=== PATIENT | female | born 1975 | race Caucasian/White ===

== ENCOUNTER 2016-08-22 17:39 | Emergency (ER) | payer MEDICAID ==
[2016-08-22 17:54] LABS: BASOPHIL# 0.1 X 10^3uL (0.0-0.1); BASOPHILS 0.5 % (0.0-2.0); EOSINOPHILS 1.2 % (0.0-6.0); EOSINOPHILS# 0.1 X 10^3uL (0.0-0.4); HEMATOCRIT 41.4 % (36.0-48.0); HEMOGLOBIN 14.5 g/dL (12.0-16.0); LYMPHOCYTES 33.4 % (20.0-40.0); LYMPHOCYTES# 3.7 X 10^3uL (0.8-3.8); MEAN CELL VOLUME 87.4 fL (80.0-100.0); MEAN CORPUS. HGB CONCENTRATION 35.1 g/dL (32.0-36.0); MEAN CORPUSCULAR HEMOGLOBIN 30.7 pg (29.0-35.0); MEAN PLATELET VOLUME 7.8 fL (7.4-10.4); MONOCYTES# 0.7 X 10^3uL (0.2-1.0); NEUTROPHILS 58.9 % (54.0-75.0); NEUTROPHILS# 6.5 X 10^3uL (2.6-6.7); PLATELET COUNT 234 X 10^3uL (130-440); RED BLOOD COUNT 4.74 X 10^6uL (4.20-6.10); RED CELL DISTRIBUTION WIDTH 12.1 % (11.5-14.5); WHITE BLOOD COUNT 11.1 X 10^3uL (3.9-10.7)
[2016-08-22] MEDS ORDERED: NITROGLYCERIN 0.4 MG TAB.SUBL SUBLINGUAL ONE (18:05)
[2016-08-22 18:08] LABS: BLOOD UREA NITROGEN 13 mg/dL (7-17); CHLORIDE 105 mmol/L (98-107); EST GLOMERULAR FILTRATION RATE > 60 mL/min; GLUCOSE 162 mg/dL (70-100); MAGNESIUM 1.9 mg/dL (1.6-2.3); POTASSIUM 2.8 mmol/L (3.5-5.1); SODIUM 141 mmol/L (137-145)
[2016-08-22] MEDS ORDERED: ONDANSETRON HCL 4 MG/2 ML VIAL ONE (18:22)
[2016-08-22] MEDS ORDERED: NORMAL SALINE 1,000 ML IV ONE (18:22)
[2016-08-22 18:27] LABS: ALBUMIN 4.5 g/dL (3.5-5.0); ALKALINE PHOSPHATASE 85 U/L (38-126); ALT 30 U/L (9-52); AST 17 U/L (14-36); BILIRUBIN, DIRECT 0.1 mg/dL (0.0-0.4); BILIRUBIN, TOTAL 0.5 mg/dL (0.2-1.3); LIPASE 61 U/L (23-300); TOTAL PROTEIN 8.1 g/dL (6.3-8.2)
[2016-08-22] MEDS ORDERED: POTASSIUM CHLORIDE/NS 20 MEQ/1,000 ML BAG IV ONE (18:33)
[2016-08-22 18:41] LABS: TROPONIN I < 0.012 ng/mL (0.00-0.034)
[2016-08-22] MEDS ORDERED: NITROGLYCERIN OINT 1 GM PACKET ONE (18:42)
[2016-08-22] MEDS ORDERED: LORazepam 0.5 MG TABLET ONE (19:03)
--- NOTE | 2016-08-22 19:04 | RADIOLOGY REPORT ---
HISTORY: Chest pain COMPARISON: None. FINDINGS: 1 view of the chest obtained. Lungs are adequately aerated with no confluent infiltrate or consolida tion. There is no pleural effusion. There is no pneumothorax. Cardiomediastinal silhouette is with in normal limits. Pulmonary vascularity is unremarkable. Trachea is midline. No interstitial or air ways thickening. Visualized bony structures appear intact. IMPRESSION: Negative portable chest. Final Electronic Signature: This report was electronically signed by Wisam Coley MD on 08/22/2016 7: 02 PM. [facility] [place] /
[2016-08-22] MEDS ORDERED: ENOXAPARIN SODIUM 80 MG/0.8 ML SYR SUBCUT ONE (19:10)
--- NOTE | 2016-08-22 20:39 | ER PHYSICIAN DOCUMENTATION ---
Physician Documentation [facility] Name:Jennifer Argueta Age:40 yrs Sex:Female :1975 Arrival Date:08/22/2016 Time:17:39 BedTrauma-C Private MD: Lane Bruno Disposition: 08/22 19:56 Critical Care: not applicable. cd Disposition: 08/22/16 19:58 Transfer ordered to [facility]. Diagnosis are Unstable Angina, Precordial Chest Pain. - Reason for transfer: Specialty. - Accepting physician is Елена Mcqueen MD, Cardiology. - Condition is Fair. - Problem is new. - Symptoms are resolved. COBRA Form completed? Yes Transfer - Mode of Transportation Ambulance HPI: 17:45 This 40 yrs old Female presents to ER via Private Vehicle with complaints of cd Chest Pain > 30 y/o. 17:45 The patient or guardian reports chest pain that is located primarily in the substernal cd area, anterior aspect of left upper chest, mid-sternal area and left breast. Onset: acutely, 1.25 hour(s) ago. The pain does not radiate. There has been no movement of pain. Associated signs and symptoms: Pertinent positives: abdominal pain, Pertinent negatives: cough, diaphoresis, lower extremity pain, lower extremity swelling, nausea, palpitations, recent travel, shortness of breath, vomiting. The chest pain is described as dull, a heaviness. Duration: The patient or guardian reports a single episode, that is still ongoing, and unchanged. Severity of pain: At its worst the pain was moderate a 6 / 10 in the emergency department the pain is unchanged. Risk factors for coronary artery disease include: This patient has a family history of coronary artery disease. This patient has a history of high cholesterol. This patient has a history of hypertension. This patient is a smoker. The risk factors for pulmonary embolism include: This patient is morbid obese. This patient is a smoker. The patient has not experienced similar symptoms in the past. Historical: - Allergies: No known drug Allergies; - Home Meds: 1. metoprolol tartrate 25 mg oral tab 1 tab 2 times per day - PSHx: ; - Tetanus: < 10 years. - Ebola Screening: : Patient negative for fever greater than or equal to 101.5 degrees Fahrenheit, and additional compatible Ebola Virus Disease symptoms. Patient denies exposure to infectious person. Patient denies travel to an Ebola-affected area in the 21 days before illness onset. . - Immunization history: Pneumococcal vaccine status is unknown, Flu Vaccine < 1 year. - Social history: Smoking status: Patient states former smoker of tobacco. ROS: 19:31 ENT: Negative for injury, pain, epistaxis and discharge. cd 19:31 Neck: Negative for injury, pain, stiffness and swelling. cd Back: Negative for injury, pain or muscle spasms. : Negative for injury, bleeding, discharge, dysuria, frequency, urgency and swelling. MS/Extremity: Negative for injury, deformity, edema, calf tenderness, pain or coldness. Skin: Negative for injury, rash, itching and discoloration. 19:31 Neuro: Negative for headache, weakness, numbness, tingling, and seizure. 19:31 Constitutional: Negative for chills, fever. 19:31 Cardiovascular: Positive for chest pain, Negative for edema, orthopnea, palpitations. 19:31 Respiratory: Negative for cough, dyspnea on exertion, hemoptysis, pleurisy, shortness of breath, sputum production, wheezing. 19:31 Abdomen/GI: Positive for abdominal pain, Negative for nausea, vomiting, diarrhea, abdominal distension, anorexia, hematemesis, black/tarry stool, rectal bleeding. 19:31 Psych: Positive for anxiety. 19:31 All other systems are negative. Exam: Head/Face: Normocephalic, atraumatic. Eyes: Pupils equal round and reactive to light, extra-ocular motions intact. Lids and lashes normal. Conjunctiva and sclera are non-icteric and not injected. Cornea within normal limits. Periorbital areas with no swelling, redness, or edema. ENT: Nares patent. No nasal discharge, no septal abnormalities noted. Tympanic membranes are normal and external auditory canals are clear. Oropharynx with no redness, swelling, or masses, exudates, or evidence of obstruction, uvula midline. Mucous membranes moist. Neck: Trachea midline, no thyromegaly or masses palpated, and no cervical lymphadenopathy. Supple, full range of motion without nuchal rigidity, or vertebral point tenderness. No Meningismus. 19:32 Chest/axilla: Normal chest wall appearance and motion. Nontender with no deformity. cd No lesions are appreciated. Back: No spinal tenderness. No costovertebral tenderness. Full range of motion. Skin: Warm, dry with normal turgor. Normal color with no rashes, no lesions, and no evidence of cellulitis. MS/ Extremity: Pulses equal, no cyanosis. Neurovascular intact. Full, normal range of motion. 19:32 Neuro: Awake and alert, GCS 15, oriented to person, place, time, and situation. Cranial nerves II-XII grossly intact. Motor strength 5/5 in all extremities. Sensory grossly intact. Cerebellar exam normal. Normal gait. 19:32 Constitutional: The patient appears alert, awake, non-diaphoretic, non-toxic, well developed, well nourished, anxious, in obvious distress, moderately distressed. 19:32 Cardiovascular: Rate: tachycardic, actual rate is 115 bpm, Rhythm: regular, Pulses: no pulse deficits are appreciated, Heart sounds: normal, Edema: is not appreciated. 19:32 Respiratory: the patient does not display signs of respiratory distress, Respirations: normal, Breath sounds: are normal, clear throughout. 19:32 Abdomen/GI: Inspection: abdomen appears normal, Bowel sounds: active, Palpation: mild abdominal tenderness, in the right upper quadrant, Sonosite US....GB not visualized, Indicators: McBurney's point is not tender, Smith's sign is positive. 19:32 Psych: Behavior/mood is pleasant, cooperative, anxious. Vital Signs: 17:40 BP 157 / 82 (auto/); lp 17:41 Pulse 120 MON; Resp 18; Pulse Ox 97% ; lp 17:45 BP 157 / 82; Pulse 118; Resp 18; Temp 97.5(O); Pulse Ox 98% on 2 lpm NC; Weight 83.91 lp kg; Height 5 ft. 7 in. (170.18 cm); Pain 8/10; 18:06 BP 130 / 63 (auto/); lp 18:06 Pulse 109 MON; Resp 19; Pulse Ox 98% ; lp 18:10 BP 103 / 60 (auto/); lp 18:11 Pulse 112 MON; Resp 17; Pulse Ox 99% ; lp 18:20 BP 119 / 64 (auto/); lp 18:21 Pulse 108 MON; Resp 19; Pulse Ox 99% ; lp 18:26 BP 129 / 74 (auto/); lp 18:26 Pulse 105 MON; Pulse Ox 100% ; lp 18:30 BP 109 / 72 (auto/); lp 18:31 Pulse 103 MON; Resp 16; Pulse Ox 99% ; lp 18:40 BP 121 / 67 (auto/); lp 18:41 Pulse 104 MON; Resp 15; Pulse Ox 99% ; lp 18:50 BP 118 / 71 (auto/); lp 18:51 Pulse 97 MON; Resp 17; Pulse Ox 99% ; lp 19:51 BP 83 / 68 (auto/); bw2 19:51 Pulse 83 MON; Resp 14; Pulse Ox 98% ; bw2 20:00 BP 89 / 60 (auto/); bw2 20:01 Pulse 95 MON; Resp 21; bw2 20:10 BP 112 / 59 (auto/); bw2 20:11 Pulse 83 MON; Resp 18; bw2 20:20 BP 120 / 64 (auto/); bw2 20:21 Pulse 88 MON; Resp 18; bw2 20:39 BP 104 / 59; Pulse 77; Resp 16; Pulse Ox 94% on R/A; lp 17:45 Body Mass Index 28.97 (83.91 kg, 170.18 cm) lp Artem Coma Score: 19:32 Eye Response: spontaneous(4). Verbal Response: oriented(5). Motor Response: obeys cd commands(6). Total: 15. MDM: 17:45 ECG:. 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 17:54 Patient took aspirin in the Emergency Department. Patient did not receive fibrinolytic cd due to not indicated. BUD Risk Score: 1 - Three or more CAD risk factors, [Family Hx], [HTN], [Elevated Cholesterol], [Active Smoker], 1 - ST deviation >0.5mm. 17:55 Differential diagnosis: abnormal EKG, acute myocardial infarction, acute pericarditis, cd anxiety, chest wall pain, cholecystitis, Cholelithiasis esophagitis, pulmonary embolus, unstable angina. 18:04 Patient medically screened. cd 18:30 Data reviewed: vital signs, nurses notes, old medical records, lab test result(s), EKG, cd radiologic studies, and as a result, I will *Transfer Patient administer IV fluids, NS bolus, NS maintenence, administer potassium, intravenously, prescribe pain medication, Dilaudid, Toradol, prescribe sedation medication, lorazepam. ECG:. 18:49 Response to treatment: the patient's symptoms have markedly improved after treatment, cd the patient is now symptom free, patient is well hydrated. and as a result, I will transfer the patient to [facility] Cardiology Service.. 19:56 Physician consultation: Елена Mcqueen MD was called at 19:45, was contacted at 19:48, cd regarding admission, to telemetry, consult, patient's condition, need to evaluate the patient as soon as possible, and will see patient in unit, after a discussion of the case, a recommendation for transfer for higher level of care is made. 20:37 EKG attached [facility] 08/22 18:01 Order name: CBC AUTO DIF, MDIF/RMOR IF IND; Complete Time: 19:34 EDKS 08/22 18:22 Interpretation: Normal Except: WHITE BLOOD COUNT 11.1. 08/22 18:09 Order name: BASIC METABOLIC PANEL; Complete Time: 19:34 EDKS 08/22 18:22 Interpretation: Normal Except: POTASSIUM 2.8; CARBON DIOXIDE 20; GLUCOSE 162; cd Hypokalemia, Hyperglycemia, Dehydration. 08/22 18:09 Order name: MAGNESIUM; Complete Time: 19:34 EDKS 08/22 18:22 Interpretation: Normal. 08/22 18:42 Order name: HEPATIC PANEL; Complete Time: 19:34 EDKS 08/22 18:46 Interpretation: Normal. 08/22 18:42 Order name: LIPASE; Complete Time: 19:34 [facility] 08/22 18:46 Interpretation: Normal. 08/22 18:42 Order name: TROPONIN I; Complete Time: 19:34 [facility] 08/22 18:46 Interpretation: Normal. 08/22 18:49 Order name: DDIMER; Complete Time: 19:34 EDKS 08/22 19:34 Interpretation: Normal. 08/22 19:05 Order name: CHEST; SINGLE VIEW 23085; Complete Time: 19:34 EDKS 08/22 19:34 Interpretation: Normal: Report Reviewed by me. 08/22 17:46 Order name: 12-lead EKG; Complete Time: 17:47 tg 08/22 17:46 Order name: Iv Saline Lock; Complete Time: 17:47 tg 08/22 17:46 Order name: Place Patient On Monitor; Complete Time: 17:47 tg 08/22 17:46 Order name: Pulse Ox Continuous; Complete Time: 17:47 tg 0611 18:48 Order name: 12-lead EKG; Complete Time: 18:54 lp EC:45 Rate is 114 beats/min. Rhythm is regular. QRS [place] is Normal. [place] interval is normal. cd QRS interval is normal. QT interval is normal. No Q waves. T waves are Normal. ST Segment is depressed in leads V3, V4, V5, <1mm. Clinical impression: ST at 114/min, ST Depressions V3,V4 and V5> probable Anterolateral Ischemia. Interpreted by me. 18:49 Rate is 81 beats/min. Rhythm is regular. QRS [place] is Normal. [place] interval is normal. QRS cd interval is normal. QT interval is normal. No Q waves. T waves are Normal. No ST changes noted. Clinical impression: Normal ECG and No evidence of ischemia. Interpreted by me. Dispensed Medications: 17:52 Drug: Aspirin Chewable Tablet 324 mg; Route: PO; lp 18:15 Follow up: Response: No adverse reaction; No change in condition lp 17:53 Drug: Nitroglycerin 0.4 mg; Route: Sublingual; lp 17:59 Follow up: Response: No adverse reaction; Pain is unchanged, physician notified lp 18:06 Drug: Nitroglycerin 0.4 mg; Route: Sublingual; lp 18:26 Follow up: Response: Pain is unchanged, physician notified lp 18:14 Drug: Zofran 4 mg; Route: IVP; Infused Over: 2 mins; Site: right antecubital; lp 18:39 Follow up: Response: Nausea is decreased lp 18:14 Drug: NS 0.9% 500 ml; Route: IV; Rate: bolus; Site: right antecubital; lp 18:18 Drug: Dilaudid 0.5 mg; Route: IVP; Site: right antecubital; lp 18:39 Follow up: Response: Pain is decreased lp 18:26 CANCELLED (Physician Discretion): NS 0.9% 500 ml IV at bolus once lp 18:26 Drug: NS with KCl 20 mEq/L 1000 ml/hr; Volume: 1000 ml; Route: IV; Rate: 1000 ml/hr; lp Infused Over: 1 hrs; Site: right antecubital; 19:26 Follow up: Response: No adverse reaction; IV Status: Completed infusion; IV Intake: lp 1000ml 18:38 Drug: Nitroglycerin Ointment 2 % 1 inches; Route: Transdermal; Site: anterior chest lp wall; 18:39 Drug: Dilaudid 0.5 mg; Route: IVP; Site: right antecubital; lp 18:59 Follow up: Response: No adverse reaction; Pain is decreased lp 18:54 Drug: Ativan 0.5 mg; Route: PO; lp 19:29 Follow up: Response: No adverse reaction; Anxiety decreased lp 18:58 Drug: Enoxaparin 1 mg/kg; {Note: 80mg.} Route: Sub-Q; Site: right lower abdomen; lp 19:29 Follow up: Response: No adverse reaction; No change in condition lp Point of Care Testing: Urine Dip: 19:36 pH: 5.5; ; Specific [place]: 1.005; Ketones: Negative; Glucose: Negative; Protein: lp Negative; Leukocytes: Trace; Nitrite: Negative ; Blood: Negative; Bilirubin: Negative ; Urobilinogen: Normal Signatures: Avtar Dewitt RN RN tg Mary Harmon RN RN lp Daley, Chris, MD MD cd Wisely, [facility]
--- NOTE | 2016-08-22 20:39 | ER NURSING DOCUMENTATION ---
Nurse's Notes [facility] Name:Jennifer Argueta Age:40 yrs Sex:Female :1975 Arrival Date:08/22/2016 Time:17:39 BedTrauma-C Private MD: Diagnosis:Unstable Angina;Precordial Chest Pain Presentation: 08/22 17:40 Acuity: TOMMIE 2 tg 17:44 Presenting complaint: Patient states: Chest pain. Transition of care: Home. lp 17:44 Method Of Arrival: Private Vehicle lp 17:53 Asprin Given Given in ED 324 mg po. lp 20:28 AIR CAT ACTIVATION other Not indicated. lp Triage Assessment: 17:47 General: Appears in no apparent distress, Behavior is anxious. Pain: Complains of pain lp in anterior aspect of left upper chest and left breast Pain does not radiate. Pain currently is 8 out of 10 on a pain scale. Cardiovascular: Capillary refill < 3 seconds Heart tones S1 S2 Reports Nausea shortness of breath. Respiratory: No deficits noted. GI: No deficits noted. : No deficits noted. Derm: No deficits noted. Historical: - Allergies: No known drug Allergies; - Home Meds: 1. metoprolol tartrate 25 mg oral tab 1 tab 2 times per day - PSHx: ; - Tetanus: < 10 years. - Ebola Screening: : Patient negative for fever greater than or equal to 101.5 degrees Fahrenheit, and additional compatible Ebola Virus Disease symptoms. Patient denies exposure to infectious person. Patient denies travel to an Ebola-affected area in the 21 days before illness onset. . - Immunization history: Pneumococcal vaccine status is unknown, Flu Vaccine < 1 year. - Social history: Smoking status: Patient states former smoker of tobacco. Screenin:50 Infectious Disease Risk None. Infectious Disease Risk None. Abuse screen: Denies lp threats or abuse. Denies injuries from another. Nutritional screening: No deficits noted. Assessment: 17:49 Pain: Complains of pain in anterior aspect of left upper chest and left breast Pain lp began 30 min ago. Vital Signs: 17:40 BP 157 / 82 (auto/); lp 17:41 Pulse 120 MON; Resp 18; Pulse Ox 97% ; lp 17:45 BP 157 / 82; Pulse 118; Resp 18; Temp 97.5(O); Pulse Ox 98% on 2 lpm NC; Weight 83.91 lp kg; Height 5 ft. 7 in. (170.18 cm); Pain 8/10; 18:06 BP 130 / 63 (auto/); lp 18:06 Pulse 109 MON; Resp 19; Pulse Ox 98% ; lp 18:10 BP 103 / 60 (auto/); lp 18:11 Pulse 112 MON; Resp 17; Pulse Ox 99% ; lp 18:20 BP 119 / 64 (auto/); lp 18:21 Pulse 108 MON; Resp 19; Pulse Ox 99% ; lp 18:26 BP 129 / 74 (auto/); lp 18:26 Pulse 105 MON; Pulse Ox 100% ; lp 18:30 BP 109 / 72 (auto/); lp 18:31 Pulse 103 MON; Resp 16; Pulse Ox 99% ; lp 18:40 BP 121 / 67 (auto/); lp 18:41 Pulse 104 MON; Resp 15; Pulse Ox 99% ; lp 18:50 BP 118 / 71 (auto/); lp 18:51 Pulse 97 MON; Resp 17; Pulse Ox 99% ; lp 19:51 BP 83 / 68 (auto/); bw2 19:51 Pulse 83 MON; Resp 14; Pulse Ox 98% ; bw2 20:00 BP 89 / 60 (auto/); bw2 20:01 Pulse 95 MON; Resp 21; bw2 20:10 BP 112 / 59 (auto/); bw2 20:11 Pulse 83 MON; Resp 18; bw2 20:20 BP 120 / 64 (auto/); bw2 20:21 Pulse 88 MON; Resp 18; bw2 20:39 BP 104 / 59; Pulse 77; Resp 16; Pulse Ox 94% on R/A; lp 17:45 Body Mass Index 28.97 (83.91 kg, 170.18 cm) lp [place] Coma Score: 19:32 Eye Response: spontaneous(4). Verbal Response: oriented(5). Motor Response: obeys cd commands(6). Total: 15. ED Course: 17:40 Patient arrived in ED. jt 17:40 Triage completed. tg 17:44 Mary Harmon, RN is Primary Nurse. lp 17:48 Inserted peripheral IV: 20 gauge in right antecubital area and blood collected. arc 17:[address] Cervantes notified. lp 17:50 Port Xray Completed. pm1 17:50 Oxygen Oxygen administration via nasal cannula @ 2L/min. lp 17:50 Valuables Remains with patient Patient has correct armband on for positive lp identification. Placed in gown. Bed in low position. Call light in reach. Side rails up X 1. Cardiac Monitoring On for Nurse Monitoring only. Pulse Ox - RN Monitoring Only NIBP On - RN Monitoring Only. 18:04 Lane Cervantes MD is Attending Physician. cd 18:49 EKG done. (by ED staff). Reviewed by Lane Cervantes MD. arc 20:37 EKG attached bw2 Administered Medications: 17:52 Drug: Aspirin Chewable Tablet 324 mg; Route: PO; lp 18:15 Follow up: Response: No adverse reaction; No change in condition lp 17:53 Drug: Nitroglycerin 0.4 mg; Route: Sublingual; lp 17:59 Follow up: Response: No adverse reaction; Pain is unchanged, physician notified lp 18:06 Drug: Nitroglycerin 0.4 mg; Route: Sublingual; lp 18:26 Follow up: Response: Pain is unchanged, physician notified lp 18:14 Drug: Zofran 4 mg; Route: IVP; Infused Over: 2 mins; Site: right antecubital; lp 18:39 Follow up: Response: Nausea is decreased lp 18:14 Drug: NS 0.9% 500 ml; Route: IV; Rate: bolus; Site: right antecubital; lp 18:18 Drug: Dilaudid 0.5 mg; Route: IVP; Site: right antecubital; lp 18:39 Follow up: Response: Pain is decreased lp 18:26 CANCELLED (Physician Discretion): NS 0.9% 500 ml IV at bolus once lp 18:26 Drug: NS with KCl 20 mEq/L 1000 ml/hr; Volume: 1000 ml; Route: IV; Rate: 1000 ml/hr; lp Infused Over: 1 hrs; Site: right antecubital; 19:26 Follow up: Response: No adverse reaction; IV Status: Completed infusion; IV Intake: lp 1000ml 18:38 Drug: Nitroglycerin Ointment 2 % 1 inches; Route: Transdermal; Site: anterior chest lp wall; 18:39 Drug: Dilaudid 0.5 mg; Route: IVP; Site: right antecubital; lp 18:59 Follow up: Response: No adverse reaction; Pain is decreased lp 18:54 Drug: Ativan 0.5 mg; Route: PO; lp 19:29 Follow up: Response: No adverse reaction; Anxiety decreased lp 18:58 Drug: Enoxaparin 1 mg/kg; {Note: 80mg.} Route: Sub-Q; Site: right lower abdomen; lp 19:29 Follow up: Response: No adverse reaction; No change in condition lp Point of Care Testing: Urine Dip: 19:36 pH: 5.5; ; Specific [place]: 1.005; Ketones: Negative; Glucose: Negative; Protein: lp Negative; Leukocytes: Trace; Nitrite: Negative ; Blood: Negative; Bilirubin: Negative ; Urobilinogen: Normal Intake: 19:26 IV: 1000ml; Total: 1000ml. lp Outcome: 19:58 ER care complete, transfer ordered by . nunu 20:27 [facility]27 Condition: stable 20:27 Report given to Boy ROCA at [facility] Cardiac Unit 20:27 Instructed on need for transfer 20:39 Patient left the ED. lp Signatures: Avtar Dewitt RN RN Mary Harmon RN RN Lane Nguyen MD MD cd McBride, Philisha pm1 Vania Correa Reg Reg arc Tennant, Joanne jt Wisely, Beth 2
== END 2016-08-22 20:39 | disposition short-term general hospital (02) ==
LOC: ER 17:39
DX: I20.0 Unstable angina (principal); R10.11 Right upper quadrant pain; E86.0 Dehydration; E87.6 Hypokalemia; R73.9 Hyperglycemia, unspecified; I10 Essential (primary) hypertension; E78.00 Pure hypercholesterolemia, unspecified; F17.210 Nicotine dependence, cigarettes, uncomplicated; E66.9 Obesity, unspecified; Z82.49 Family history of ischemic heart disease and other diseases of the circulatory system; Z79.899 Other long term (current) drug therapy; Z99.89 Dependence on other enabling machines and devices; Z99.81 Dependence on supplemental oxygen; Z74.3 Need for continuous supervision
CPT/HCPCS: 71010; 80048; 80076; 83690; 83735; 84484; 85025; 85379; 93005; 96365; 96372; 96375; 99285; A0425; A0427; J1170; J1650; J2405; J3480; J7030